=== PATIENT | male | born 1980 | race Hispanic/Latino ===

== ENCOUNTER 2017-11-05 02:43 | Emergency (ER) | payer SELFPAY ==
[2017-11-05] MEDS ORDERED: Lidocaine 1% w/Epinephrine 1:100K 20 ML VIAL ONE (03:34)
[2017-11-05] MEDS ORDERED: Sodium Bicarbonate 2.4 MEQ/5 ML ONE (03:34)
[2017-11-05] MEDS ORDERED: Adacel (T-DAP) 0.5 ML VIAL ONE (04:22)
== END 2017-11-05 04:54 | disposition home or self-care (01) ==
LOC: ERS 02:43
DX: S01.81XA Laceration without foreign body of other part of head, initial encounter (principal); W19.XXXA Unspecified fall, initial encounter
CPT/HCPCS: 12011; 90471; 90715; J2001